=== PATIENT | male | born 1960 | race Caucasian/White ===

== ENCOUNTER 2019-03-15 14:07 | Emergency (ER) | payer OTHER ==
[~2019-03-15] VITALS: Ht 165.1 cm; Wt 83.0 kg
[2019-03-15 14:20] VITALS: BP 147/91
[2019-03-15] MEDS ORDERED: ASPI-1718 PO (14:24)
[2019-03-15] MEDS ORDERED: LISI5TAB18 PO (14:24)
[2019-03-15] MEDS ORDERED: METF1000 PO (14:24)
[2019-03-15] MEDS ORDERED: INSULIN REGULAR, HUMAN 100 UNIT/ML VIAL IVP ONE (14:40)
[2019-03-15] MEDS ORDERED: KETOROLAC 30 MG/ML VIAL IVP ONE (14:40)
[2019-03-15] MEDS ORDERED: NACL 0.9% 1,000 ML IV ONE (14:40)
[2019-03-15 15:22] LABS: BASOPHILS % (AUTO) 0.4 % (0.0-2.0); EOSINOPHILS # (AUTO) 0.1 K/uL (0-0.4); EOSINOPHILS % (AUTO) 0.9 % (0.0-4.0); HEMATOCRIT 42.8 % (36-52); HEMOGLOBIN 14.5 g/dL (12.0-18.0); LYMPHOCYTES # (AUTO) 2.1 K/uL (2.0-11.5); LYMPHOCYTES % (AUTO) 19.8 % (20.5-51.1); MEAN CORPUSCULAR HEMOGLOBIN 30 pg (27-31); MEAN CORPUSCULAR HGB CONC 34 g/dL (33-37); MEAN CORPUSCULAR VOLUME 87.8 fL (80-94); MONOCYTES # (AUTO) 0.6 K/uL (0.8-1.0); NEUTROPHILS # (AUTO) 7.7 K/uL (1.8-7.7); NEUTROPHILS % (AUTO) 72.9 % (42.2-75.2); PLATELET COUNT (AUTO) 301 K/uL (140-450); RED BLOOD CELL COUNT(AUTO) 4.87 MIL/uL (4.20-6.10); RED CELL DISTRIBUTION WIDTH 12.8 % (11.6-13.7); WHITE BLOOD COUNT (AUTO) 10.6 K/uL (4.8-10.8)
[2019-03-15 15:48] LABS: ALBUMIN 4.2 g/dL (3.4-5.0); ANION GAP 12.7 (8-16); ASPARTATE AMINOTRANSFERASE 16 U/L (15-37); CARBON DIOXIDE 28.7 mmol/L (21-32); CHLORIDE 97 mmol/L (98-107); GFR ARICAN-AMERICAN 99 mL/min (>90); POTASSIUM 5.4 mmol/L (3.5-5.1); SODIUM SERUM 133 mmol/L (136-145); TOTAL BILIRUBIN 0.4 mg/dL (0.0-1.0); UREA NITROGEN, BLOOD 27 mg/dL (7-18)
[2019-03-15 15:56] LABS: GLUCOSE 426 mg/dL (74-106)
[2019-03-15 16:00] LABS: ACETONE, SERUM NEGATIVE (NEGATIVE)
[2019-03-15 16:33] VITALS: BP 135/78
== END 2019-03-15 16:32 | disposition home or self-care (01) ==
LOC: MED 14:07
DX: E11.65 Type 2 diabetes mellitus with hyperglycemia (principal); M25.511 Pain in right shoulder; Z79.84 Long term (current) use of oral hypoglycemic drugs; Z79.82 Long term (current) use of aspirin; Z79.899 Other long term (current) drug therapy
CPT/HCPCS: 36415; 73030; 80053; 82009; 82948; 85025; 96361; 96374; 96375; 99284; J1815; J1885; J7030; Q0092